=== PATIENT | male | born 1950 | race Caucasian/White ===

== ENCOUNTER 2017-03-03 09:35 | Emergency (ER) | payer MEDICARE, OTHER ==
[~2017-03-03] VITALS: Ht 175.3 cm; Wt 99.0 kg
[~2017-03-03 09:35] MED LIST: AMLO10TA3 PO; ASPI-973 PO; CALC500T9 PO; CHOL10008 PO; CLON0.2T PO; FUR20 PO; GABA-502 PO; HYDR-3605 PO; INSLIS SUBQ; INSU100V7 SUBQ; ISOS60TA2 PO; LEVO500T79 PO; MAGN400T4 PO; METO50TA3 PO; OXYC5TAB72 PO; POLY17PO6 PO; PRD5T PO; SODI650T PO; TACR1CAP8 PO; ZYL100 PO
[2017-03-03 09:50] VITALS: BP 143/69; PULSE 55; RESP 15; O2SAT 96
--- NOTE | 2017-03-03 09:54 | ED.REPORT ---
HPI-General Illness Date of Service Mar 03, 2017 ED Provider: Dr. Zimmerman 67 y/o male with a hx of a kidney transplant 2 years ago presents to the ED with multiple complaints. He reports shortness of breath and wheezing for the last 3 days. He states he was seen at urgent care yesterday and was told "you have little bit of CHF so watch yourself". The pt denies chest pain. The pt has also been coughing and was initially concerned he may have pneumonia but reports feeling better since yesterday. He also complains of lower extremity edema and abdominal pain. The pt has been eating [place] rice and associates the edema with high sodium in the rice. The pt is currently on Furosemide. He is not on any blood thinners. He denies fever and chills. Nursing Notes Stated Complaint: POSS. CONGESTIVE HEART FAILURE/PNEUMONIA Chief Complaint: Chest Pain Nursing Notes Reviewed: Yes Allergies: Coded Allergies: Penicillins (Verified Allergy, Severe, uticaria/RASH, 03/03/17) labetalol (Verified Allergy, Severe, shortness of breath- OK WITH METOPROLOL, 03/03/17) sulfamethoxazole (Verified Allergy, Severe, RASH, 03/03/17) 12/03/14: Has taken successfully with benadryl recently per . trimethoprim (Verified Allergy, Severe, RASH, 03/03/17) gluten (Verified Allergy, Unknown, Nausea, 03/03/17) atorvastatin calcium (Verified Adverse Reaction, Severe, LEG CRAMPS ( LIPITOR), 03/03/17) carbamazepine (Verified Adverse Reaction, Severe, ITCHING, 03/03/17) lorazepam (Verified Adverse Reaction, Severe, anxiety, 03/03/17) Sulfa (Sulfonamide Antibiotics) (Verified Adverse Reaction, Intermediate, rash, 03/03/17) Scheduled Allopurinol (Allopurinol) 100 Mg Tablet 100 MG PO DAILY Amlodipine (Amlodipine) 10 Mg Tablet 10 MG PO BID Aspirin (Aspirin) 81 Mg Tablet 81 MG PO DAILY Cholecalciferol (Vitamin D3) (Vitamin D3) 1,000 Unit Tab.chew 1,000 UNIT PO DAILY Clonidine (Clonidine) 0.2 Mg Tablet 0.2 MG PO TID Furosemide (Furosemide) 20 Mg Tab 20 MG PO DAILY Gabapentin (Gabapentin) 300 Mg Capsule 600 MG PO TID Insulin Glargine (Lantus U100 Insulin Vial) 100 Unit/Ml Vial 1 UNIT SUBQ TID Insulin Human Lispro (HumaLOG U100 Insulin Vial) 100 Unit/Ml Unit 1 UNIT SUBQ TID Check blood sugars before meals and at bedtime. Use correction factor only before meals. Blood Sugar Lispro Correction: <151, 0 units; 151-175, 1 unit; 176-200, 2 units; 201-225, 3 units; 226-250, 4 units; 251-275, 5 units; 276-300 , 6 units; 301-325, 7 units; 326-350, 8 units; 351-375, 9 units; 376-400, 10 units; >400, 12 units. Isosorbide MN ER (Isosorbide MN ER) 60 Mg Tab.er.24h 60 MG PO DAILY Levofloxacin (Levofloxacin) 500 Mg Tablet 500 MG PO DAILY Magnesium Oxide (Magnesium Oxide) 400 Mg Tablet 400 MG PO BID Metoprolol Tartrate (Metoprolol Tartrate) 50 Mg Tablet 50 MG PO BID Polyethylene Glycol 3350 (Miralax) 17 Gm Powd.pack 17 GM PO BID Prednisone (PredniSONE) 5 Mg Tab 5 MG PO DAILY Sodium Bicarbonate (Sodium Bicarbonate) 650 Mg Tablet 650 MG PO TID Tacrolimus (Tacrolimus) 1 Mg Capsule 1 MG PO BID Scheduled PRN Calcium Carbonate (Tums) 500 Mg Tab.chew 500 MG PO BID PRN PRN For Indigestion HydrOXYzine HCl (HydrOXYzine HCl) 10 Mg Tablet 10 MG PO DAILY PRN PRN For Itching oxyCODONE (oxyCODONE) 5 Mg Tablet 5-10 MG PO Q4H PRN PRN For Moderate Pain Miscellaneous Medications Insulin Human Lispro (HumaLOG U100 Insulin Vial) 100 Unit/Ml Unit 1 UNIT SUBQ Check blood sugars before meals and at bedtime. Use correction factor only before meals. Blood Sugar Lispro Correction: <151, 0 units; 151-175, 1 unit; 176-200, 2 units; 201-225, 3 units; 226-250, 4 units; 251-275, 5 units; 276-300 , 6 units; 301-325, 7 units; 326-350, 8 units; 351-375, 9 units; 376-400, 10 units; >400, 12 units. General Time Seen by MD: 09:54 Chief Complaint Multip medical complaints Hx Obtained From: Patient Arrived By: Walk-in Sudden in Onset?: No Onset Occurred: 3 days ago Symptom Duration: Since onset Location: : Abdomen Quality: Painful Radiation: : Does not radiate Severity: Current: Moderate Severity: Maximum: Moderate Recent Healthcare: No recent doctor visit Similar Sx Previous: No Past Medical History Past Medical History Notes: Kidney shipping and receiving coordinator: [phone] Past Medical History Occiptal neuralgia Blindness- neuromyelitis optica, per old records Prior admit for hyperkalemia, CC on presentation is dyspnea Immuno suppressed secondary recent transplant Reports: COPD, Diabetes mellitus, Hypertension Past Surgical History 06/06/2014: Left basilic vein transposition- ESRD on Dialysis kidney transplant on August 29 2014 two cardiac stents August 2013 Reports: CABG Smoking History Never Smoker Social History Alcohol Use: Denies alcohol use Drug Use: Denies drug use Other Social History: Good social support Ambulatory Status Independent Review of Systems Full Review of Systems Constitutional: Denies: Chills, Fever Respiratory: Reports: Non-productive cough, Shortness of breath, Wheezing Cardiovascular: Reports: Edema, Denies: Chest pain GI: Reports: Abdominal pain Complete sys rev & neg: except as marked. Physical Exam Vital Signs Vital Signs Date Time Temp Pulse Resp B/P Pulse Ox O2 Delivery O2 Flow Rate FiO2 03/03/17 12:15 55 18 128/68 94 Room Air 03/03/17 09:50 36.4 55 15 143/69 96 Room Air Initial VS: Reviewed Head / Eyes: Atraumatic, Normocephalic Neck: Supple, Non-tender, Full range of motion Extremities: Vascular intact, Neuro intact, No swelling, No tenderness Skin: Warm, Dry, No cyanosis Neurologic: Alert, Oriented, Nonfocal General/Constitutional: Awake, Alert, No acute distress, Cooperative Ambulatory without difficulty Respiratory / Chest: Atraumatic, No respiratory distress, No rhonchi, No wheezing Rales / Rhonchi: Positive: Rales R base Cardiovascular: Heart rate NL, Regular rhythm, Heart sounds NL, No gallop, No murmurs, No rubs Lower Ext Edema: Positive: Bilateral 1+ Abdomen: Atraumatic, Soft, No guarding, No rebound Tenderness/Guarding/Rebound: Positive: Tender LUQ... (Mild), Tender RUQ... ( Mild) Interpretation & Diagnostics PROCEDURE: US ABDOMEN ([id number]) IMPRESSION: 1. Increased hepatic echogenicity compatible with steatosis. Evaluation for focal hepatic lesions is limited. 2. No evidence of cholelithiasis or cholecystitis. 3. Echogenic [place] kidneys consistent with sequelae of medical renal disease. 4. Transplant kidney in the right lower quadrant demonstrates mild pelvocaliectasis. Patient unable to spontaneously void given recent voiding. 5. Mild nonspecific splenomegaly. Dictated by: Chavez Tanner M.D. on 03/03/2017 at 11:51 Approved by: Chavez Tanner M.D. on 03/03/2017 at 11:58 Lab Results Interpretation Result Diagram: 03/03/17 1000 03/03/17 1000 Test 03/03/17 10:00 White Blood Count 13.1th/mm3 (3.8-10.1) Red Blood Count 4.81mil/mm3 (4.40-5.80) Hemoglobin 14.7g/dL (13.8-17.2) Hematocrit 42.1% (41.0-50.0) Mean Corpuscular Volume 87.5fL (81-100) Mean Corpuscular Hemoglobin 30.6pg (27.0-35.0) Mean Corpuscular Hemoglobin Concent 34.9% (32.0-37.0) Red Cell Distribution Width 14.8% (12.3-15.4) Platelet Count 189bil/L (150-400) Neutrophils (%) (Auto) 81.3% (40-74) Lymphocytes (%) (Auto) 9.6% (14-46) Monocytes (%) (Auto) 6.8% (4-12) Eosinophils (%) (Auto) 1.6% (0-5) Basophils (%) (Auto) 0.3% (0-3) Sodium Level 137mEq/L (134-144) Potassium Level 4.4mEq/L (3.5-5.2) Chloride Level 98mEq/L (97-108) Carbon Dioxide Level 19mmol/L (18-29) Blood Urea Nitrogen 21mg/dL (8-27) Creatinine 1.11mg/dL (0.76-1.27) Estimat Glomerular Filtration Rate 70mL/min (>59) Glucose Level 246mg/dL (60-99) Calcium Level 9.6mg/dL (8.5-10.1) Magnesium Level 1.8mg/dL (1.6-2.6) Total Bilirubin 0.6mg/dL (0.0-1.2) Aspartate Amino Transf (AST/SGOT) 31U/L (0-50) Alanine Aminotransferase (ALT/SGPT) 33U/L (0-44) Alkaline Phosphatase 94U/L (25-160) Troponin T 0.010ug/L (0.0-0.011) Pro-B-Type Natriuretic Peptide 888.0pg/mL (0-376) Total Protein 7.6g/dL (6.4-8.4) Albumin 4.4g/dL (3.4-5.0) ECG Interpretation ECG Interpretation: Normal sinus rhythm. Rate 54. Abnormal T, consider Ischemia, lateral leads Time: 10:44 Interpreted by: ED physician X-Ray Chest Interpretation Chest Xray Interpretation: IMPRESSION: Negative chest. No acute cardiopulmonary process. Dictated by: Jose Tapia M.D. on 03/03/2017 at 9:44 Approved by: Jose Tapia M.D. on 03/03/2017 at 9:46 View: Portable, 1 view Interpretation / Wet Read by: Interpret - Radiologist Re-Eval/Medical Decision Med Decision/Clinical Course Patient's signs and symptoms from mild fluid overload without evidence of overt kidney or liver failure, suspect mild congestive heart failure versus other etiology. Patient has been up and back from the restroom multiple times without event, vital signs are otherwise reassuring. EKG is similar to prior. I do not suspect acute syndrome. Will plan to increase the home Lasix and follow-up with primary care. Return and follow-up precautions given Time of Eval: 12:05 Patient Status: Condition improved Re-Evaluation/Progress Note: Rechecked pt. Discussed lab results, imaging results, diagnosis and plan to discharge. Pt understands and agrees with the plan. F/U instructions and RTER warning given. All questions addressed. Counseled Regarding: Diagnosis, Lab results, Need for follow-up, When/why to return to ED Discharge & Departure Primary Impression: Shortness of breath Disposition: Home Discharge Condition All VS Reviewed: Yes Condition: Improved Patient Instructions: Heart Failure (ED) Additional Instructions: Overall, your labs and imaging are reassuring. I suspect you are retaining some fluid. Increase your Lasix 40 mg daily for the next 5 days. Call your primary care doctor today for a close follow-up appointment. Return to the ER if you develop worsening shortness of breath, severe chest pain, high fever, or any other concerns. Referrals: Arvind Orozco MD (PCP) Scribe Attestation Portions of this note were transcribed by Jose Juan George. I,, personally performed the history, physical exam and medical decision-making;I reviewed and confirmed the accuracy of the information in the transcribed note. Signed by Perri Eckert. 03/03/17 12:17 copies to: Arvind Orozco MD, Timothy S DO Mar 03, 2017 09:54 Jose Juan George Mar 03, 2017 10:05
[2017-03-03 10:15] LABS: BASOPHILS % (AUTO) 0.3 % (0-3); EOSINOPHILS % (AUTO) 1.6 % (0-5); MONOCYTES % (AUTO) 6.8 % (4-12); Mean Corpuscular Hemoglobin 30.6 pg (27.0-35.0); Mean Corpuscular Volume 87.5 fL (81-100); NEUTROPHILS % (AUTO) 81.3 % (40-74); Platelet Count 189 bil/L (150-400)
[2017-03-03 10:31] LABS: TROPONIN T 0.01 ug/L (0.0-0.011)
[2017-03-03] MEDS ORDERED: Furosemide 10 mg/mL 4 mL Inj IVPUSH ONE (10:40)
[2017-03-03 10:42] LABS: Magnesium 1.8 mg/dL (1.6-2.6)
--- NOTE | 2017-03-03 10:48 | DRSVH ---
PROCEDURE: X-RAY CHEST ONE VIEW, PORTABLE ([id number]) INDICATIONS: Chest pain TECHNIQUE: One view of the chest was acquired. COMPARISON:. [facility], CR, XR SHOULDER 4 VW RT, 07/22/2016, 8:30. [facility], CR, XR CHEST 2VW, 03/25/2016, 8:16. FINDINGS: Surgical changes and devices: None. Lungs and pleura: The aeration of the lungs is similar to the prior study. There is no focal consoli dation, effusion, or pneumothorax. Mild elevation of the right diaphragm is present. Mediastinum: Mediastinal contours appear normal. Heart size is borderline enlarged. There is aorti c atherosclerosis. Bones and chest wall: No suspicious bony lesions. Degenerative changes of the spine with mild dextr oconvex curvature is present. Mild deformity involving the proximal right humeral diametaphysis prob ably is related to previous injury. Overlying soft tissues appear unremarkable. IMPRESSION: Negative chest. No acute cardiopulmonary process. Dictated by: Jose Tapia M.D. on 03/03/2017 at 9:44 Approved by: Jose Tapia M.D. on 03/03/2017 at 9:46
--- NOTE | 2017-03-03 12:00 | DRSVH ---
PROCEDURE: US ABDOMEN ([id number]) INDICATIONS: Upper abdominal pain TECHNIQUE: Real-time scanning was performed of the abdominal and retroperitoneal organs, with image documentatio n. COMPARISON: [facility], US, ABDOMEN SONOGRAM, 09/16/2013, 12:39. FINDINGS: Liver: Liver is normal in size and markedly increased in echogenicity consistent with fatty infiltra tion. Gallbladder: No gallstones, gallbladder wall thickening, or pericholecystic fluid. Biliary ducts: Intrahepatic bile ducts are non-dilated. Extrahepatic bile duct caliber measures up to 7 mm. Normal is 6-7 mm or less in diameter, or 10 mm or less post-cholecystectomy. Pancreas: Visualized portions of the pancreas are heterogeneously echogenic. No associated peripanc reatic fluid collections. Spleen: Spleen is mildly enlarged measuring up to 13.8 cm. Kidneys: Kidneys are echogenic, with the [place] right kidney not well visualized. [place] left kidne y measures up to 13.1 cm with minimal cortical thinning. Left renal cortex measures 0.9 cm. There i s increased cortical echogenicity consistent with medical renal disease. There is a transplant kidney in the right lower quadrant measuring up to 13.7 cm in length. Renal co rtex measures up to 1.6 cm. There is mild pelvocaliectasis. Patient was unable to void spontaneousl y. No perinephric fluid collections. The transplanted renal artery appears patent. The transplant renal vein also appears patent. Aorta: Visualized aorta is normal in caliber at less than 3 cm. Iliacs: Proximal common iliac arteries are normal in caliber at less than 2.5 cm. IVC: Intrahepatic inferior vena cava is patent. Miscellaneous: No free abdominal fluid. IMPRESSION: 1. Increased hepatic echogenicity compatible with steatosis. Evaluation for focal hepatic lesions i s limited. 2. No evidence of cholelithiasis or cholecystitis. 3. Echogenic [place] kidneys consistent with sequelae of medical renal disease. 4. Transplant kidney in the right lower quadrant demonstrates mild pelvocaliectasis. Patient unable to spontaneously void given recent voiding. 5. Mild nonspecific splenomegaly. Dictated by: Chavez Tanner M.D. on 03/03/2017 at 11:51 Approved by: Chavez Tanner M.D. on 03/03/2017 at 11:58
[2017-03-03 12:15] VITALS: BP 128/68; PULSE 55; RESP 18; O2SAT 94
== END 2017-03-03 12:16 | disposition home or self-care (01) ==
LOC: SED 09:35
DX: R06.02 Shortness of breath (principal); E11.42 Type 2 diabetes mellitus with diabetic polyneuropathy; N18.6 End stage renal disease; I12.0 Hypertensive chronic kidney disease with stage 5 chronic kidney disease or end stage renal disease; J44.9 Chronic obstructive pulmonary disease, unspecified; Z94.0 Kidney transplant status; Z95.1 Presence of aortocoronary bypass graft; Z79.82 Long term (current) use of aspirin; Z79.4 Long term (current) use of insulin; Z79.899 Other long term (current) drug therapy; Z88.0 Allergy status to penicillin; Z88.2 Allergy status to sulfonamides; Z88.8 Allergy status to other drugs, medicaments and biological substances
CPT/HCPCS: 36415; 71010; 76700; 80053; 82948; 83735; 83880; 84484; 85025; 93005; 96374; 99285; J1940